=== PATIENT | male | born 1980 | race Caucasian/White ===

== ENCOUNTER → 2021-11-01 16:06 | Outpatient (CLI) | payer BC, SELFPAY ==
--- NOTE | 2021-11-01 16:11 | XR_ITS ---
FINAL REPORT CLINICAL HISTORY: kidney stone FINDINGS: A single view of the abdomen was obtained. There is a nonobstructive bowel gas pattern. There are no abnormally dilated loops of small bowel. There is a moderate amount of retained stool. There is no definite renal stone. There is a 4 mm calcification in the right pelvis favoring a phlebolith. IMPRESSION: Moderate amount of retained stool. 4 mm calcification in the right pelvis favors a phlebolith. Distal ureteral stone is not entirely excluded. Reviewed, Interpreted and Dictated by David Montoya III, MD Transcribed by Onesimo Victor Authenticated by David Montoya III, MD on 11/01/2021 04:36:00 PM [facility]
== END ==
PROVIDERS: Visit Provider Pathology Anatomic Pathology & Clinical Pathology
DX: N20.0 Calculus of kidney (principal)
CPT/HCPCS: 74018